=== PATIENT | female | born 1990 | race African-American/Black ===

== ENCOUNTER 2016-05-19 13:09 | Outpatient (CLI) | payer MEDICAID ==
[~2016-05-19] VITALS: Ht 170.2 cm; Wt 182.2 kg
[~2016-05-19 13:09] MED LIST: PREN1TAB60; PRENATALS PO
[2016-05-19 13:38] VITALS: BP 102/58
[2016-05-19] MEDS ORDERED: FLUT1DIS IH (15:06)
[2016-05-19] MEDS ORDERED: HYDR250V5 IM (15:08)
== END 2016-05-19 14:04 | disposition home or self-care (01) ==
LOC: LDOP 13:09
PROVIDERS: ATTEND Specialist
DX: O26.892 Other specified pregnancy related conditions, second trimester (principal); R10.9 Unspecified abdominal pain; R19.7 Diarrhea, unspecified; O21.9 Vomiting of pregnancy, unspecified; O99.332 Smoking (tobacco) complicating pregnancy, second trimester; F17.200 Nicotine dependence, unspecified, uncomplicated; Z3A.23 23 weeks gestation of pregnancy
CPT/HCPCS: 59025; 99211; G0463

== ENCOUNTER 2017-03-13 12:20 | Emergency (ER) | payer MEDICAID ==
[~2017-03-13] VITALS: Ht 172.7 cm; Wt 56.4 kg
[~2017-03-13 12:20] MED LIST changes: +FLUT1DIS IH; +HYDR250V5 IM
[2017-03-13 12:22] VITALS: BP 109/73
== END 2017-03-13 14:05 | disposition home or self-care (01) ==
LOC: ED 13:59
DX: S63.521A Sprain of radiocarpal joint of right wrist, initial encounter (principal); W01.0XXA Fall on same level from slipping, tripping and stumbling without subsequent striking against object, initial encounter; Y93.89 Activity, other specified; Y99.8 Other external cause status; Y92.89 Other specified places as the place of occurrence of the external cause
CPT/HCPCS: 29125; 99284

== ENCOUNTER 2019-08-30 12:39 | Emergency (ER) | payer SELFPAY ==
[~2019-08-30] VITALS: Ht 172.7 cm; Wt 54.9 kg
--- NOTE | 2019-08-30 13:02 | NUR ---
PT TO RM AT THIS TIME
--- NOTE | 2019-08-30 13:09 | NUR ---
PT WITH C/O 11/14 ABD PAIN LOCATED RUQ/RLQ/R FLANK PAIN. PT STATES "I THINK I HAVE A KIDNEY STONE, I HAVE HAD THEM BEFORE AND THIS IS WHAT IT FEELS LIKE" PT STATES PAIN BEGAN SUNDAY THIS WEEK. PT REPORTS DYSURIA, HEMATURIA, BLADDER PAIN WELL. PT STATES SHE HAS HAD FEVERS AT HOME, AFEBRILE IN TRIAGE. PT TO BP, CONT PULSE OX. PIV INITIATED, AWAITING ORDERS
[2019-08-30] MEDS ORDERED: ONDANSETRON 2MG/ML, 2ML ONE (13:21)
[2019-08-30] MEDS ORDERED: MORPHINE SULFATE 4 MG/ML, 1ML ONE (13:22)
[2019-08-30] MEDS ORDERED: ONDANSETRON 2MG/ML, 2ML IVPush ONE (13:30)
[2019-08-30] MEDS ORDERED: MORPHINE SULFATE 4 MG/ML, 1ML IVPush PRN (13:30)
[2019-08-30] MEDS ORDERED: SODIUM CHLORIDE FLUSH 10ML SYR IVF ONE (13:30)
[2019-08-30 13:34] LABS: BASOPHILS # (AUTO) 0.02 x10^3/uL (0-0.1); BASOPHILS % (AUTO) 0 % (0-1); EOSINOPHILS % (AUTO) 0 % (1-7); LYMPHOCYTES # (AUTO) 0.53 x10^3/uL (1-3.4); LYMPHOCYTES % (AUTO) 6 % (22-44); MD NO; MEAN CORPUSCULAR HEMOGLOBIN 30.4 pg (27.0-34.8); MEAN CORPUSCULAR HGB CONC 33.2 g/dL (32.4-35.8); MEAN CORPUSCULAR VOLUME 91.6 fL (80-100); MEAN PLATELET VOLUME 7.7 fL (7.4-10.4); MONOCYTES % (AUTO) 6 % (2-9); NEUTROPHILS # (AUTO) 7.23 x10^3/uL (1.8-6.8); NEUTROPHILS % (AUTO) 87 % (42-75); PLATELET COUNT 191 x10^3/uL (130-400); RED BLOOD COUNT 4.73 x10^6/uL (3.82-5.3); RED CELL DISTRIBUTION WIDTH 11.8 % (9.6-15.2)
[2019-08-30 13:45] LABS: MICROSCOPIC INDICATED
[2019-08-30 13:46] LABS: ALANINE AMINOTRANSFERASE 20 U/L (12-78); ALBUMIN 3.6 g/dL (3.4-5.0); ANION GAP 8 mmol/L (5-15); CALCIUM 9.6 mg/dL (8.5-10.1); CHLORIDE 104 mmol/L (98-107); CREATININE 1.18 mg/dL (0.55-1.02)
[2019-08-30 13:50] LABS: ALKALINE PHOSPHATASE 68 U/L (45-117); BILIRUBIN,TOTAL 0.8 mg/dL (0.2-1.0); TOTAL PROTEIN 7.9 g/dL (6.4-8.2)
[2019-08-30 14:51] VITALS: BP 103/69
--- NOTE | 2019-08-30 14:51 | NUR ---
break RN note: pt resting on gurney, resps even and unlabored, pt has no complaint at this time. all results back, chart up for recheck, awaiting MD and dispo.
[2019-08-30] MEDS ORDERED: CEFTRIAXONE 1,000 MG IM ONE (15:00)
[2019-08-30] MEDS ORDERED: CEFTRIAXONE 1,000 MG ONE (15:41)
[2019-08-30] MEDS ORDERED: LIDOCAINE-MPF 1%, 5ML ONE (15:41)
== END 2019-08-30 16:06 | disposition home or self-care (01) ==
LOC: ED 14:45
DX: N10 Acute pyelonephritis (principal); R11.0 Nausea
CPT/HCPCS: 36415; 76700; 80053; 81001; 84703; 85025; 87077; 87086; 87186; 96372; 96374; 96375; 99285; J0696; J2270; J2405; 99284

== ENCOUNTER 2020-08-31 15:54 | Emergency (ER) | payer MEDICAID, OTHER ==
[~2020-08-31] VITALS: Ht 172.7 cm; Wt 62.1 kg
--- NOTE | 2020-08-31 16:34 | NUR ---
ICE PACK GIVEN IN TRIAGE
--- NOTE | 2020-08-31 19:25 | NUR ---
math interventionist note: Pt to room from lobby.
[2020-08-31] MEDS ORDERED: IBUPROFEN 800 MG TABLET PO ONE (20:30)
[2020-08-31] MEDS ORDERED: IBUPROFEN 800 MG TABLET ONE (20:30)
[2020-08-31 21:00] VITALS: BP 111/71
== END 2020-08-31 21:11 | disposition home or self-care (01) ==
LOC: ED 21:09
DX: G89.11 Acute pain due to trauma (principal); M25.531 Pain in right wrist; M79.641 Pain in right hand; F17.200 Nicotine dependence, unspecified, uncomplicated; W01.0XXA Fall on same level from slipping, tripping and stumbling without subsequent striking against object, initial encounter; Y93.89 Activity, other specified; Y92.69 Other specified industrial and construction area as the place of occurrence of the external cause; Y99.0 Civilian activity done for income or pay
CPT/HCPCS: 99284; 99285